=== PATIENT | female | born 1980 | race Caucasian/White ===

== ENCOUNTER 2022-09-17 12:50 | Outpatient (CLI) | payer OTHER | END 2022-09-17 12:51 | disposition EMS.NT | LOC: EMS 12:50 | DX: R10.13 Epigastric pain (principal); R11.2 Nausea with vomiting, unspecified; R19.7 Diarrhea, unspecified ==

== ENCOUNTER 2022-09-17 13:39 | Emergency (ER) | payer OTHER ==
--- OUTSIDE RECORDS SUMMARY | 2022-09-17 13:45 | EXTERNAL MEDICAL SUMMARY RPT | Continuity of Care Document ---
:1980 Author Organization [facility] Address [address] [place] [address] Phone Allergies and Intolerances date description facility type (no date) [facility] (unknown) Encounters No information. Functional Status No information. Immunizations No information. Medications date description facility [id number] Levothyroxine Sodium 0.025 MG Oral Tab let [facility] Problems No information. Procedures date description facility +0000 [facility] [id number] [facility] Results/Labs test date author facility value unit interpret ation Result panel 1 (unknown) (no (unknown) (unknown) (no value) (units (unk nown) date) unknown) (unknown) (no (unknown) (unknown) [place], [place] (units ( unknown) date) [id number] unknown) (unknown) (no (unknown) (unknown) [place] (units (unkno wn) date) unknown) (unknown) (no (unknown) (unknown) [facility] (units (unknown) date) unknown) (unknown) (no (unknown) (unknown) Nurse Office (units (u nknown) date) Visit unknown) (unknown) (no (unknown) (unknown) itching (units (unkno wn) date) unknown) (unknown) (no (unknown) (unknown) (no value) (units (unk nown) date) unknown) (unknown) (no (unknown) (unknown) COVID-19 (units (u nknown) date) unknown) (unknown) (no (unknown) (unknown) 06/20/22 (units (unkno wn) date) unknown) (unknown) (no (unknown) (unknown) [id number] (units (unkno wn) date) unknown) (unknown) (no (unknown) (unknown) Age/Sex: 42 / F (units (unknown) date) Date of Service: unknown) (unknown) (no (unknown) (unknown) Allergies (units (unkn own) date) unknown) (unknown) (no (unknown) (unknown) Attending Dr: (units ( unknown) date) Damian Cedeño MD unknown) (unknown) (no (unknown) (unknown) : 1980 (units (unknown) date) Acct:[id number] unknown) (unknown) (no (unknown) (unknown) Dept at (units (unkno wn) date) . unknown) (unknown) (no (unknown) (unknown) Documented By: (units (unknown) date) Damian Cedeño MD unknown) 06/20/22 1143 (unknown) (no (unknown) (unknown) Evaluation/Scree (units (unknown) date) chey for possible unknown) COVID-19 completed?: Yes- COVID-19 CPT (unknown) (no (unknown) (unknown) Health (units (unkno wn) date) Management unknown) (unknown) (no (unknown) (unknown) Health (units (unkno wn) date) Management unknown) reviewed with patient: No (unknown) (no (unknown) (unknown) Intake (units (unkno wn) date) unknown) (unknown) (no (unknown) (unknown) Intake Note: (units (u nknown) date) unknown) (unknown) (no (unknown) (unknown) Intake performed (units (unknown) date) by: Melania Vieyra unknown) (unknown) (no (unknown) (unknown) Intake- Clincial (units (unknown) date) Staff unknown) (unknown) (no (unknown) (unknown) Loc: [facility] (units (unkno wn) date) unknown) (unknown) (no (unknown) (unknown) Note (units (unkno wn) date) unknown) (unknown) (no (unknown) (unknown) Patient: (units (unkno wn) date) Patsy Pedroza unknown) MR#: [id number] (unknown) (no (unknown) (unknown) Pt came in for a (units (unknown) date) pre procedure unknown) covid test. Denied any covid symptoms. Explained (unknown) (no (unknown) (unknown) Reason For Visit (units (unknown) date) unknown) (unknown) (no (unknown) (unknown) Signed By: (units (unk nown) date) unknown) (unknown) (no (unknown) (unknown) Smoking Status: (units (unknown) date) Never smoker unknown) (unknown) (no (unknown) (unknown) This note may (units ( unknown) date) have been all or unknown) partially generated using voice recognition (unknown) (no (unknown) (unknown) Tobacco Status (units (unknown) date) unknown) (unknown) (no (unknown) (unknown) Visit Reasons: (units (unknown) date) [facility] unknown) (unknown) (no (unknown) (unknown) have occurred. (units (unknown) date) If there are any unknown) questions, please contact the Medical Records (unknown) (no (unknown) (unknown) latex Allergy (units ( unknown) date) (Intermediate, unknown) Verified 02/26/22 14:22) (unknown) (no (unknown) (unknown) may occur. (units (unk nown) date) Occasional unknown) wrong-word or 'sound-alike' substitutions may have (unknown) (no (unknown) (unknown) occurred due to (units (unknown) date) the inherent unknown) limitations of voice recognition software. Please (unknown) (no (unknown) (unknown) read the note (units ( unknown) date) carefully and unknown) recognize, using context, where these substitutions (unknown) (no (unknown) (unknown) software. (units (unkn own) date) Although every unknown) effort is made to edit content, cone winder errors (unknown) (no (unknown) (unknown) test to pt. (units (un known) date) Tolerated well. unknown) Result panel 2 (unknown) (no date) (unknown) (unknown) Negative (units (unkn own) unknown) Result panel 3 (unknown) (no (unknown) (unknown) (no value) (units (unk nown) date) unknown) (unknown) (no (unknown) (unknown) 06/22/22 1159 (units ( unknown) date) unknown) (unknown) (no (unknown) (unknown) [place] (units ( unknown) date) [id number] unknown) (unknown) (no (unknown) (unknown) [facility] (units (unknown) date) unknown) (unknown) (no (unknown) (unknown) Nurse Office (units (u nknown) date) Visit unknown) (unknown) (no (unknown) (unknown) Signed (units (unkno wn) date) unknown) (unknown) (no (unknown) (unknown) itching (units (unkno wn) date) unknown) (unknown) (no (unknown) (unknown) (no value) (units (unk nown) date) unknown) (unknown) (no (unknown) (unknown) COVID-19 (units (u nknown) date) unknown) (unknown) (no (unknown) (unknown) 06/20/22 (units (unkno wn) date) unknown) (unknown) (no (unknown) (unknown) [id number] (units (unkno wn) date) unknown) (unknown) (no (unknown) (unknown) Age/Sex: 42 / F (units (unknown) date) Date of Service: unknown) (unknown) (no (unknown) (unknown) Allergies (units (unkn own) date) unknown) (unknown) (no (unknown) (unknown) Attending Dr: (units ( unknown) date) Damian Cedeño MD unknown) (unknown) (no (unknown) (unknown) : 1980 (units (unknown) date) Acct:[id number] unknown) (unknown) (no (unknown) (unknown) Dept at (units (unkno wn) date) . unknown) (unknown) (no (unknown) (unknown) Documented By: (units (unknown) date) Damian Cedeño MD unknown) 06/20/22 1143 (unknown) (no (unknown) (unknown) Evaluation/Scree (units (unknown) date) chey for possible unknown) COVID-19 completed?: Yes- COVID-19 CPT (unknown) (no (unknown) (unknown) Health (units (unkno wn) date) Management unknown) (unknown) (no (unknown) (unknown) Health (units (unkno wn) date) Management unknown) reviewed with patient: No (unknown) (no (unknown) (unknown) Intake (units (unkno wn) date) unknown) (unknown) (no (unknown) (unknown) Intake Note: (units (u nknown) date) unknown) (unknown) (no (unknown) (unknown) Intake performed (units (unknown) date) by: Melania Vieyra unknown) (unknown) (no (unknown) (unknown) Intake- Clincial (units (unknown) date) Staff unknown) (unknown) (no (unknown) (unknown) Loc: [facility] (units (unkno wn) date) unknown) (unknown) (no (unknown) (unknown) Note (units (unkno wn) date) unknown) (unknown) (no (unknown) (unknown) Patient: (units (unkno wn) date) Patsy Pedroza unknown) MR#: [id number] (unknown) (no (unknown) (unknown) Pt came in for a (units (unknown) date) pre procedure unknown) covid test. Denied any covid symptoms. Explained (unknown) (no (unknown) (unknown) Reason For Visit (units (unknown) date) unknown) (unknown) (no (unknown) (unknown) Signed By: (units (unk nown) date) <Electronically unknown) signed by Damian Cedeño MD> (unknown) (no (unknown) (unknown) Smoking Status: (units (unknown) date) Never smoker unknown) (unknown) (no (unknown) (unknown) This note may (units ( unknown) date) have been all or unknown) partially generated using voice recognition (unknown) (no (unknown) (unknown) Tobacco Status (units (unknown) date) unknown) (unknown) (no (unknown) (unknown) Visit Reasons: (units (unknown) date) [facility] unknown) (unknown) (no (unknown) (unknown) have occurred. (units (unknown) date) If there are any unknown) questions, please contact the Medical Records (unknown) (no (unknown) (unknown) latex Allergy (units ( unknown) date) (Intermediate, unknown) Verified 02/26/22 14:22) (unknown) (no (unknown) (unknown) may occur. (units (unk nown) date) Occasional unknown) wrong-word or 'sound-alike' substitutions may have (unknown) (no (unknown) (unknown) occurred due to (units (unknown) date) the inherent unknown) limitations of voice recognition software. Please (unknown) (no (unknown) (unknown) read the note (units ( unknown) date) carefully and unknown) recognize, using context, where these substitutions (unknown) (no (unknown) (unknown) software. (units (unkn own) date) Although every unknown) effort is made to edit content, cone winder errors (unknown) (no (unknown) (unknown) test to pt. (units (un known) date) Tolerated well. unknown) Result panel 4 (unknown) (no date) (unknown) (unknown) (no value) (units 226 37-3 unknown) (unknown) (no date) (unknown) (unknown) (no value) (units 495 60-6 unknown) (unknown) (no date) (unknown) (unknown) (no value) (units 191 39-5 unknown) (unknown) (no date) (unknown) (unknown) (no value) (units 226 34-0 unknown) (unknown) (no date) (unknown) (unknown) (no value) (units 226 33-2 unknown) (unknown) (no date) (unknown) (unknown) (no value) (units 527 97-8 unknown) Result panel 5 (unknown) (no (unknown) (unknown) (no value) (units (unk nown) date) unknown) (unknown) (no (unknown) (unknown) (no value) (units (unk nown) date) unknown) (unknown) (no (unknown) (unknown) Date of Service: (units (unknown) date) 06/23/22 unknown) (unknown) (no (unknown) (unknown) (no value) (units (unk nown) date) unknown) (unknown) (no (unknown) (unknown) - (units (unkno wn) date) unknown) (unknown) (no (unknown) (unknown) 06/23/22 0919 (units ( unknown) date) unknown) (unknown) (no (unknown) (unknown) 06/23/22 0920 (units ( unknown) date) unknown) (unknown) (no (unknown) (unknown) Allergies (units (unkn own) date) unknown) (unknown) (no (unknown) (unknown) History + (units (unkn own) date) Physical Report unknown) (unknown) (no (unknown) (unknown) Home Medications (units (unknown) date) unknown) (unknown) (no (unknown) (unknown) [facility] (units (unknown) date) [address] unknown) [place] [address] (unknown) (no (unknown) (unknown) Pre-operative (units ( unknown) date) Note unknown) (unknown) (no (unknown) (unknown) (no value) (units (unk nown) date) unknown) (unknown) (no (unknown) (unknown) 06/23/22 (units (unkno wn) date) unknown) (unknown) (no (unknown) (unknown) Medication (units (unk nown) date) Instructions unknown) Recorded Confirmed Type (unknown) (no (unknown) (unknown) (past 8 hours): (units (unknown) date) unknown) (unknown) (no (unknown) (unknown) 08:42 (units (unkno wn) date) unknown) (unknown) (no (unknown) (unknown) [id number] (units (unkno wn) date) unknown) (unknown) (no (unknown) (unknown) 42-year-old (units (un known) date) female with unknown) altered bowel habit in the setting of a family history (unknown) (no (unknown) (unknown) ASA Class (for (units (unknown) date) procedural unknown) sedation): II (unknown) (no (unknown) (unknown) Age/Sex: 42 / F (units (unknown) date) unknown) (unknown) (no (unknown) (unknown) Allergy/AdvReac (units (unknown) date) Type Severity unknown) Reaction Status Date / Time (unknown) (no (unknown) (unknown) Appearance: (units (un known) date) grossly normal unknown) (unknown) (no (unknown) (unknown) Assessment + (units (u nknown) date) Plan unknown) (unknown) (no (unknown) (unknown) Assessment + (units (u nknown) date) Plan narrative: unknown) (unknown) (no (unknown) (unknown) 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 unknown) (unknown) (no (unknown) (unknown) Blood Pressure (units (unknown) date) 113/79 unknown) (unknown) (no (unknown) (unknown) COVID-19 (units (unkno wn) date) unknown) (unknown) (no (unknown) (unknown) COVID-19 status: (units (unknown) date) Negative unknown) (unknown) (no (unknown) (unknown) Cardio (units (unkno wn) date) unknown) (unknown) (no (unknown) (unknown) (units (unkno wn) date) delivery unknown) delivered (unknown) (no (unknown) (unknown) Changes to H+P: (units (unknown) date) No unknown) (unknown) (no (unknown) (unknown) Chest (units (unkno wn) date) unknown) (unknown) (no (unknown) (unknown) Chest: normal (units ( unknown) date) inspection of the unknown) chest (unknown) (no (unknown) (unknown) Chief complaint: (units (unknown) date) SDC unknown) (unknown) (no (unknown) (unknown) Const (units (unkno wn) date) unknown) (unknown) (no (unknown) (unknown) Criteria for (units (u nknown) date) continued unknown) procedure: Possibility delay results in more complex (unknown) (no (unknown) (unknown) Critical Care (units ( unknown) date) time: unknown) (unknown) (no (unknown) (unknown) : 1980 (units (unknown) date) Acct:[id number] unknown) (unknown) (no (unknown) (unknown) Date Patient (units (u nknown) date) Seen: 06/23/22 unknown) (unknown) (no (unknown) (unknown) Effort + (units (unkno wn) date) Inspection: unknown) normal respiratory effort (unknown) (no (unknown) (unknown) Exam (units (unkno wn) date) unknown) (unknown) (no (unknown) (unknown) Extrem (units (unkno wn) date) unknown) (unknown) (no (unknown) (unknown) Eyes (units (unkno wn) date) unknown) (unknown) (no (unknown) (unknown) Family + Social (units (unknown) date) History unknown) (unknown) (no (unknown) (unknown) GI (units (unkno wn) date) unknown) (unknown) (no (unknown) (unknown) General: (units (unkno wn) date) appearance unknown) normal, both eyes and all related structures (unknown) (no (unknown) (unknown) General: (units (unkno wn) date) cooperative unknown) (unknown) (no (unknown) (unknown) General: no (units (un known) date) rashes or lesions unknown) noted (unknown) (no (unknown) (unknown) General: normal (units (unknown) date) to inspection and unknown) no pedal edema (unknown) (no (unknown) (unknown) General: patient (units (unknown) date) alert and patient unknown) awake (unknown) (no (unknown) (unknown) HENMT (units (unkno wn) date) unknown) (unknown) (no (unknown) (unknown) Head: normal to (units (unknown) date) inspection unknown) (unknown) (no (unknown) (unknown) History + (units (unkn own) date) Physical unknown) reviewed/Exam performed by Physician: Yes (unknown) (no (unknown) (unknown) History of (units (unk nown) date) Present Illness unknown) (unknown) (no (unknown) (unknown) Home Medications (units (unknown) date) and Allergies unknown) (unknown) (no (unknown) (unknown) I reviewed my (units ( unknown) date) note from March of unknown) this year no significant changes. Patient has (unknown) (no (unknown) (unknown) I spent a total (units (unknown) date) of [] minutes of unknown) critical care time on this patient's care (unknown) (no (unknown) (unknown) Inspection: (units (un known) date) normal to unknown) inspection (unknown) (no (unknown) (unknown) Interval Note (units ( unknown) date) unknown) (unknown) (no (unknown) (unknown) Kidney stones (units ( unknown) date) unknown) (unknown) (no (unknown) (unknown) Medical History (units (unknown) date) (Reviewed unknown) 06/23/22 @ 09:18 by Moe Lazaro MD) (unknown) (no (unknown) (unknown) Meds (units (unkno wn) date) unknown) (unknown) (no (unknown) (unknown) Menorrhagia with (units (unknown) date) regular cycle unknown) (unknown) (no (unknown) (unknown) Narrative: (units (unk nown) date) unknown) (unknown) (no (unknown) (unknown) Neck (units (unkno wn) date) unknown) (unknown) (no (unknown) (unknown) Neck: normal (units (u nknown) date) visual inspection unknown) (unknown) (no (unknown) (unknown) Neuro (units (unkno wn) date) unknown) (unknown) (no (unknown) (unknown) Oxygen Delivery (units (unknown) date) Method Room Air unknown) (unknown) (no (unknown) (unknown) Oxygen Delivery (units (unknown) date) Method Room Air unknown) (unknown) (no (unknown) (unknown) PONV (units (unkno wn) date) (postoperative unknown) nausea and vomiting) (unknown) (no (unknown) (unknown) Patient History (units (unknown) date) unknown) (unknown) (no (unknown) (unknown) Patient: (units (unkno wn) date) Patsy Pedroza unknown) MR#: [id number] (unknown) (no (unknown) (unknown) Pre-operative (units ( unknown) date) Note unknown) (unknown) (no (unknown) (unknown) 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 (unknown) (no (unknown) (unknown) Provider: (units (unkn own) date) Moe Lazaro MD unknown) (unknown) (no (unknown) (unknown) Psych (units (unkno wn) date) unknown) (unknown) (no (unknown) (unknown) Pulse Oximetry (units (unknown) date) 100 unknown) (unknown) (no (unknown) (unknown) Pulse Rate 62 (units ( unknown) date) unknown) (unknown) (no (unknown) (unknown) ROS: Yes All (units (u nknown) date) systems reviewed unknown) with the patient and are negative except as (unknown) (no (unknown) (unknown) Rate: regular (units ( unknown) date) rate unknown) (unknown) (no (unknown) (unknown) Resp (units (unkno wn) date) unknown) (unknown) (no (unknown) (unknown) Respiratory Rate (units (unknown) date) 16 unknown) (unknown) (no (unknown) (unknown) Result date/Date (units (unknown) date) tested (Pos, unknown) Neg/Pending): 06/20/22 (unknown) (no (unknown) (unknown) Review of (units (unkn own) date) Systems unknown) (unknown) (no (unknown) (unknown) S/P endometrial (units (unknown) date) ablation unknown) (unknown) (no (unknown) (unknown) Signed (units (unkno wn) date) By:<Electronicall unknown) y signed by Moe Lazaro MD> (unknown) (no (unknown) (unknown) Skin (units (unkno wn) date) unknown) (unknown) (no (unknown) (unknown) Smoking Status (units (unknown) date) Never smoker unknown) (unknown) (no (unknown) (unknown) Social History: (units (unknown) date) unknown) (unknown) (no (unknown) (unknown) Substance Use (units ( unknown) date) Type does not use unknown) (unknown) (no (unknown) (unknown) Surgical History (units (unknown) date) (Reviewed unknown) 06/23/22 @ 09:18 by Moe Lazaro MD) (unknown) (no (unknown) (unknown) Temperature 98.2 (units (unknown) date) F unknown) (unknown) (no (unknown) (unknown) Time Patient (units (u nknown) date) Seen: 09:17 unknown) (unknown) (no (unknown) (unknown) Time Spent With (units (unknown) date) Patient unknown) (unknown) (no (unknown) (unknown) Tobacco + (units (unkn own) date) Substance use: unknown) (unknown) (no (unknown) (unknown) Vital Signs (units (un known) date) unknown) (unknown) (no (unknown) (unknown) alcohol intake (units (unknown) date) current unknown) (unknown) (no (unknown) (unknown) alcohol intake (units (unknown) date) frequency a few unknown) times a month (unknown) (no (unknown) (unknown) future surgery (units (unknown) date) or treatment unknown) (unknown) (no (unknown) (unknown) household (units (unkn own) date) members spouse unknown) (unknown) (no (unknown) (unknown) is planned for (units (unknown) date) today. unknown) (unknown) (no (unknown) (unknown) latex Allergy (units ( unknown) date) Intermediate unknown) itching Verified 06/23/22 08:38 (unknown) (no (unknown) (unknown) levothyroxine 25 (units (unknown) date) mcg tablet 50 mcg unknown) PO DAILY 06/23/22 06/23/22 History (unknown) (no (unknown) (unknown) multivitamin 1 (units (unknown) date) cap PO DAILY unknown) 02/06/20 04/08/22 History (unknown) (no (unknown) (unknown) not responded (units ( unknown) date) sufficiently to unknown) psyllium husk. She is using a ?green supplement (unknown) (no (unknown) (unknown) of colon polyps (units (unknown) date) and family unknown) history of inflammatory bowel disease. Colonoscopy (unknown) (no (unknown) (unknown) otherwise (units (unkn own) date) documented unknown) (unknown) (no (unknown) (unknown) quetiapine 25 mg (units (unknown) date) tablet 75 mg PO unknown) BEDTIME #150 tabs 06/11/22 06/23/22 Rx (unknown) (no (unknown) (unknown) today; this time (units (unknown) date) is exclusive of unknown) procedural time. (unknown) (no (unknown) (unknown) with probiotics? (units (unknown) date) and this is unknown) helping. Result panel 6 (unknown) (no (unknown) (unknown) Colonic mucosa (units (unknown) date) with no unknown) diagnostic abnormality. (unknown) (no (unknown) (unknown) Negative for (units (u nknown) date) active, chronic, unknown) and microscopic colitis. (unknown) (no (unknown) (unknown) Negative for (units (u nknown) date) dysplasia and unknown) malignancy. (unknown) (no (unknown) (unknown) [address] [place] [address] (units (unknown) date) [address], unknown) [place], [place] [id number] (unknown) (no (unknown) (unknown) [facility] (units (unknown) date) [facility] unknown) (unknown) (no (unknown) (unknown) MD Byrd (units (unkn own) date) Kely GONZALES Phone: unknown) [phone] (unknown) (no (unknown) (unknown) (no value) (units (unk nown) date) unknown) (unknown) (no (unknown) (unknown) [address] [place] [address] (units (unknown) date) unknown) (unknown) (no (unknown) (unknown) [place] (units ( unknown) date) [address] unknown) (unknown) (no (unknown) (unknown) [facility] (units (unknown) date) unknown) (unknown) (no (unknown) (unknown) Pathology (units (unkn own) date) Diagnostic Report unknown) (unknown) (no (unknown) (unknown) Signed (units (unkno wn) date) unknown) (unknown) (no (unknown) (unknown) (no value) (units (unk nown) date) unknown) (unknown) (no (unknown) (unknown) (units (unknown) date) unknown) (unknown) (no (unknown) (unknown) Performed at: (units (unknown) date) 01 unknown) (unknown) (no (unknown) (unknown) . 01 (units (unkno wn) date) unknown) (unknown) (no (unknown) (unknown) . (units (unkno wn) date) unknown) (unknown) (no (unknown) (unknown) /JOEY 06/23/2022 (units (unknown) date) 1931 Local unknown) (unknown) (no (unknown) (unknown) 0.1 x 0.1 x 0.1 (units (unknown) date) cm in aggregate unknown) submitted entirely in 1 cassette(s) (unknown) (no (unknown) (unknown) [id number] (units (unkno wn) date) unknown) (unknown) (no (unknown) (unknown) CPT . (units (unkno wn) date) unknown) (unknown) (no (unknown) (unknown) Diagnosis: (units (unk nown) date) unknown) (unknown) (no (unknown) (unknown) Electronically (units (unknown) date) signed: . unknown) (unknown) (no (unknown) (unknown) Gross (units (unkno wn) date) description: . unknown) (unknown) (no (unknown) (unknown) K59.00 (units (unkno wn) date) unknown) (unknown) (no (unknown) (unknown) [facility] Accession (units ( unknown) date) Number: unknown) [id number] (unknown) (no (unknown) (unknown) MRV 06/24/2022 (units (unknown) date) 1243 Local unknown) (unknown) (no (unknown) (unknown) Material (units (unkno wn) date) submitted: . unknown) (unknown) (no (unknown) (unknown) NPI- [id number] (units (unknown) date) unknown) (unknown) (no (unknown) (unknown) Pathologist (units (un known) date) provided ICD-10: unknown) (unknown) (no (unknown) (unknown) RANDOM COLON (units (u nknown) date) BIOPSIES: unknown) (unknown) (no (unknown) (unknown) Random Colon (units (u nknown) date) Biopsies: unknown) (unknown) (no (unknown) (unknown) Received in (units (un known) date) formalin are 2 unknown) fragment(s) of de león, soft tissue measuring (unknown) (no (unknown) (unknown) Cortney Ray (units (unkno wn) date) MD Farrah, unknown) Pathologist (unknown) (no (unknown) (unknown) Specimen (units (unkno wn) date) Comment: A unknown) courtesy copy of this report has been sent to [phone] (unknown) (no (unknown) (unknown) colon - RANDOM (units (unknown) date) COLON BIOPSIES unknown) (unknown) (no (unknown) (unknown) Collection Date: (units (unknown) date) 06/23/22 unknown) (unknown) (no (unknown) (unknown) DD/ (units (unknown) date) 0000 unknown) (unknown) (no (unknown) (unknown) Date of : (units (unknown) date) 1980 Admit unknown) Date: 06/23/22 (unknown) (no (unknown) (unknown) Dictated By: (units (u nknown) date) Cortney Yan MD unknown) (unknown) (no (unknown) (unknown) (units (unknown) date) Dictating Dr: unknown) Cortney Yan MD (unknown) (no (unknown) (unknown) Ordering (units (unkno wn) date) Physician: unknown) Moe Lazaro MD (unknown) (no (unknown) (unknown) Patient name: (units ( unknown) date) Patsy Pedroza unknown) (unknown) (no (unknown) (unknown) Signed By: (units (unk nown) date) 06/24/222006 unknown) (unknown) (no (unknown) (unknown) TD/TT: 06/24/22 (units (unknown) date) 2006 unknown) Result panel 7 (unknown) (no (unknown) (unknown) (no value) (units (unk nown) date) unknown) (unknown) (no (unknown) (unknown) Date of Service: (units (unknown) date) 06/23/22 unknown) (unknown) (no (unknown) (unknown) 06/23/22 1024 (units ( unknown) date) unknown) (unknown) (no (unknown) (unknown) Colonoscopy Note (units (unknown) date) unknown) (unknown) (no (unknown) (unknown) [facility] (units (unknown) date) [address] unknown) [place] [address] (unknown) (no (unknown) (unknown) (no value) (units (unk nown) date) unknown) (unknown) (no (unknown) (unknown) 1. Continue (units (un known) date) current unknown) supplementation with probiotic 2. Repeat colonoscopy 10 (unknown) (no (unknown) (unknown) [id number] (units (unkno wn) date) unknown) (unknown) (no (unknown) (unknown) Adult colonoscope (units (unknown) date) unknown) (unknown) (no (unknown) (unknown) After the risks (units (unknown) date) and benefits were unknown) explained, written and verbal informed consent (unknown) (no (unknown) (unknown) Age/Sex: 42 / F (units (unknown) date) unknown) (unknown) (no (unknown) (unknown) Altered bowel (units ( unknown) date) habits unknown) constipation and diarrhea the history of colon polyps (unknown) (no (unknown) (unknown) Bowel prep (units (unk nown) date) adequate unknown) (unknown) (no (unknown) (unknown) Colonoscopy with (units (unknown) date) biopsies. unknown) (unknown) (no (unknown) (unknown) Complications: (units (unknown) date) none unknown) (unknown) (no (unknown) (unknown) Comprehensive (units ( unknown) date) imaging was unknown) accomplished throughout the rectum including the (unknown) (no (unknown) (unknown) : 1980 (units (unknown) date) Acct:[id number] unknown) (unknown) (no (unknown) (unknown) Date of (units (unkno wn) date) procedure: unknown) 06/23/22 (unknown) (no (unknown) (unknown) Disposition: PACU (units (unknown) date) unknown) (unknown) (no (unknown) (unknown) Endoscopic (units (unk nown) date) diagnosis unknown) (unknown) (no (unknown) (unknown) Impression: (units (un known) date) unknown) (unknown) (no (unknown) (unknown) Indications: (units (u nknown) date) unknown) (unknown) (no (unknown) (unknown) Operative (units (unkn own) date) Date/Time/Diagnose unknown) s (unknown) (no (unknown) (unknown) Patient: (units (unkno wn) date) Patsy Pedroza unknown) MR#: [id number] (unknown) (no (unknown) (unknown) Plan for (units (unkno wn) date) aftercare: unknown) (unknown) (no (unknown) (unknown) Post-op (units (unkno wn) date) diagnosis: same unknown) (unknown) (no (unknown) (unknown) Post-procedure (units (unknown) date) unknown) (unknown) (no (unknown) (unknown) Pre-op diagnosis: (units (unknown) date) Altered bowel unknown) habits constipation and diarrhea the history of (unknown) (no (unknown) (unknown) Procedure + (units (un known) date) Clinicians unknown) (unknown) (no (unknown) (unknown) Procedure Notes (units (unknown) date) unknown) (unknown) (no (unknown) (unknown) Procedure in (units (u nknown) date) detail: unknown) (unknown) (no (unknown) (unknown) Provider: (units (unkn own) date) Moe Lazaro MD unknown) (unknown) (no (unknown) (unknown) SCOAP/Timeout: (units (unknown) date) Done unknown) (unknown) (no (unknown) (unknown) Same procedure as (units (unknown) date) scheduled: Yes unknown) (unknown) (no (unknown) (unknown) Scope withdrawal (units (unknown) date) time: 8 minutes unknown) (unknown) (no (unknown) (unknown) Sedation minutes: (units (unknown) date) 15 unknown) (unknown) (no (unknown) (unknown) Signed (units (unkno wn) date) By:<Electronically unknown) signed by Moe Lazaro MD> (unknown) (no (unknown) (unknown) Study performed: (units (unknown) date) unknown) (unknown) (no (unknown) (unknown) Surgeon: Moe (units (unknown) date) Tejas unknown) (unknown) (no (unknown) (unknown) There was no (units (un known) date) evidence of any unknown) proctitis. No colitis throughout. Random biopsies (unknown) (no (unknown) (unknown) Time of (units (unkno wn) date) procedure: 10:22 unknown) (unknown) (no (unknown) (unknown) Visually normal (units (unknown) date) colonoscopy and unknown) terminal ileoscopy (unknown) (no (unknown) (unknown) appreciated (units (un known) date) throughout. unknown) (unknown) (no (unknown) (unknown) as identified by (units (unknown) date) the appendiceal unknown) orifice and ileocecal valve. The scope was (unknown) (no (unknown) (unknown) colon polyps (units (u nknown) date) family history of unknown) inflammatory bowel disease (unknown) (no (unknown) (unknown) dentate line. The (units (unknown) date) colon was unknown) decompressed, the scope was then removed from the (unknown) (no (unknown) (unknown) family history of (units (unknown) date) inflammatory bowel unknown) disease (unknown) (no (unknown) (unknown) interrogated and (units (unknown) date) appeared visually unknown) normal. No polyps or mass lesions were (unknown) (no (unknown) (unknown) introduced into (units (unknown) date) the patient and unknown) advanced under direct visualization to the cecum (unknown) (no (unknown) (unknown) patient who (units (un known) date) tolerated the unknown) procedure well. (unknown) (no (unknown) (unknown) sedation details. (units (unknown) date) Digital rectal unknown) examination was accomplished. The scope was (unknown) (no (unknown) (unknown) slowly withdrawn (units (unknown) date) to carefully unknown) examine the mucosa for any defects or lesions. (unknown) (no (unknown) (unknown) the left lateral (units (unknown) date) decubitus unknown) position. Please see nurse boat tender notes for (unknown) (no (unknown) (unknown) was obtained. The (units (unknown) date) patient was unknown) brought into the procedure room and placed into (unknown) (no (unknown) (unknown) were acquired for (units (unknown) date) exclusion of unknown) microscopic disease. The terminal ileum was (unknown) (no (unknown) (unknown) years time 3. (units ( unknown) date) Await unknown) histopathology Social History date description facility (no date) Never smoked tobacco (finding) [facility] Vital Signs date measurement value units +0000 BMI BMI 31.1 kg/m2 [id number]+0000 BP_diastolic BP_diastolic 73 mm[H g] [id number]+0000 BP_systolic BP_systolic 111 mm[Hg] [id number]+0000 heart_rate heart_rate 65 /min [id number]+0000 height_metric height_metric 157.48 cm [id number]+0000 height_standard height_standard 62 in [id number]+0000 respiration_rate respiration_rate 18 /min [id number]+0000 temperature_metric temperature_metric 36.06 C [id number]+0000 temperature_standard temperature_standard 9 6.9 F [id number]+0000 weight_metric weight_metric 34.98 kg [id number]+0000 weight_standard weight_standard 77.11 lb
[2022-09-17 13:58] LABS: BASOPHILS % (AUTO) 0.2 %; EOSINOPHILS # (AUTO) 0.1 10^3/uL (0.0-0.7); EOSINOPHILS % (AUTO) 0.8 %; HCT - HEMATOCRIT 41.2 % (37.0-47.0); HGB - HEMOGLOBIN 14.1 g/dL (12.0-16.0); LYMPHOCYTES # (AUTO) 1.2 10^3/uL (1.5-3.5); LYMPHOCYTES % (AUTO) 18.2 %; MEAN CORPUSCULAR HEMOGLOBIN 29.9 pg (27.0-31.0); MEAN CORPUSCULAR HGB CONC 34.2 g/dL (32.0-36.0); MEAN CORPUSCULAR VOLUME 87.5 fL (81.0-99.0); MEAN PLATELET VOLUME 10.6 fL (7.9-10.8); MONOCYTES # (AUTO) 0.4 10^3/uL (0.0-1.0); MONOCYTES % (AUTO) 6.6 %; NEUTROPHILS # (AUTO) 4.8 10^3/uL (1.5-6.6); PLT - PLATELET COUNT 269 10^3/uL (130-450); RED BLOOD COUNT 4.71 10^6/uL (4.20-5.40); RED CELL DISTRIBUTION WIDTH 12.6 % (12.0-15.0); WHITE BLOOD COUNT 6.5 x10^3/uL (4.8-10.8)
--- NOTE | 2022-09-17 13:59 | ED Physician Documentation ---
PD HPI ABD PAIN - Stated complaint Stated Complaint: ABD PX - Chief complaint Chief Complaint: Abd Pain - History obtained from History obtained from: Patient - History of Present Illness Timing - onset: How many days ago (2) Timing - duration: Days (2) Timing - details: Abrupt onset (Onset initially of crampy diffuse abdominal pain with nausea some episodes of vomiting and several episodes of diarrhea. That improved but now with last night and today severe mid to upper abdominal pain with eating or upright position. Feels intense cramping and stabbing together.) Quality: Cramping, Aching, Pain Location: Epigastric, Periumbilical Radiation: Lower back Improved by: BM (Less cramping after diarrheal movement). No: Eating, Vomiting Worsened by: Eating Associated symptoms: Nausea, Vomiting (yesterday few times, none today), Diarrhea (yesterday, last movement overnight about 1 am.), Loss of appetite. No: Fever, Near syncope / syncope Similar symptoms before: No diagnosis (She states she has had intermittent episodes with similar pain nausea and loose stool lasting for a day or so over the last few months, with 3 separate episodes. No evaluation. Current episode is worse.) Recently seen: Not recently seen Review of Systems Constitutional: reports: Myalgias. denies: Fever, Chills Nose: denies: Rhinorrhea / runny nose, Congestion Throat: denies: Sore throat Cardiac: denies: Chest pain / pressure Respiratory: denies: Cough GI: reports: Abdominal Pain, Nausea, Vomiting, Diarrhea. denies: Hematemesis, Bloody / black stool : denies: Dysuria Neurologic: denies: Generalized weakness, Focal weakness, Near syncope, Altered mental status, Headache PD PAST MEDICAL HISTORY - Past Medical History Cardiovascular: None Respiratory: None Endocrine/Autoimmune: None GI: None - Present Medications Home Medications: Ambulatory Orders Medication Instructions Recorded Confirmed Dicyclomine [Bentyl] 10 mg PO QID PRN #20 cap 09/17/22 Lidocaine Viscous 2% [Xylocaine 5 ml PO Q4H PRN #100 ml 09/17/22 Viscous 2%] Ondansetron Odt [Zofran] 4 mg TL Q6H PRN #10 tablet 09/17/22 Pantoprazole [Protonix] 40 mg PO DAILY 30 Days #30 tablet 09/17/22 Potassium Citrate [Potassium 10 meq PO DAILY 09/17/22 09/17/22 Citrate ER] QUEtiapine [SEROquel] 75 mg PO QPM 09/17/22 09/17/22 Sertraline [Zoloft] 50 mg PO DAILY 09/17/22 09/17/22 - Allergies Allergies/Adverse Reactions: Allergies Allergy/AdvReac Type Severity Reaction Status Date / Time latex Allergy Hives Verified 09/17/22 14:53 PD ED PE NORMAL - Vitals Vital signs reviewed: Yes - General General: Alert and oriented X 3, No acute distress, Well developed/nourished - Neck Neck: Supple, no meningeal sign, No adenopathy - Cardiac Cardiac: RRR, No murmur - Respiratory Respiratory: Clear bilaterally - Abdomen Abdomen: Normal bowel sounds, Soft, Non distended, No organomegaly, Other (Tender in the periumbilical and epigastric area. Not particularly tender in the right upper quadrant. No percussion or rebound tenderness. Mild guarding central abdomen.) - Female Female : Deferred - Rectal Rectal: Deferred - Back Back: No CVA TTP - Derm Derm: Normal color, Warm and dry - Neuro Neuro: Alert and oriented X 3, No motor deficit, Normal speech Results - Vitals Vitals: Vital Signs - 24 hr 09/17/22 09/17/22 09/17/22 13:45 16:31 17:31 Temperature 37.1 C Heart Rate 63 66 73 Respiratory 15 15 19 Rate Blood Pressure 128/87 H 119/80 113/81 H O2 Saturation 100 100 99 Oxygen O2 Source Room air - Labs Labs: Laboratory Tests 09/17/22 09/17/22 09/17/22 13:53 13:53 13:58 WBC 6.5 RBC 4.71 Hgb 14.1 Hct 41.2 MCV 87.5 MCH 29.9 MCHC 34.2 RDW 12.6 Plt Count 269 MPV 10.6 Neut # (Auto) 4.8 Lymph # (Auto) 1.2 L [place] # (Auto) 0.4 Eos # (Auto) 0.1 Baso # (Auto) 0.0 Absolute Nucleated RBC 0.00 Nucleated RBC % 0.0 Sodium 137 Potassium 3.7 Chloride 108 Carbon Dioxide 23 Anion Gap 6.0 BUN 10 Creatinine 0.7 Estimated GFR (MDRD) 92 Glucose 112 H Calcium 8.9 Total Bilirubin 0.5 AST 24 ALT 25 Alkaline Phosphatase 47 Total Protein 7.3 Albumin 4.2 Globulin 3.1 Albumin/Globulin Ratio 1.4 Lipase 64 H Urine Color YELLOW Urine Clarity CLEAR Urine pH 7.5 Ur Specific [place] 1.010 Urine Protein NEGATIVE Urine Glucose (UA) NEGATIVE Urine Ketones NEGATIVE Urine Occult Blood NEGATIVE Urine Nitrite NEGATIVE Urine Bilirubin NEGATIVE Urine Urobilinogen 0.2 (NORMAL) Ur Leukocyte Esterase NEGATIVE Ur Microscopic Review NOT INDICATED Urine Culture Comments NOT INDICATED Urine HCG, Qual NEGATIVE - Rads (name of study) abd/pelvic CT Radiology: Final report received (no acute findings in abd/pelvis. Nonobstructing stone left kidney. ), See rad report PD MEDICAL DECISION MAKING - ED course Complexity details: reviewed results (Normal basic labs with minimal elevation of lipase. Tenderness in the mid abdomen so CT scan obtained.), considered differential (Current episode could be viral or food related with abrupt onset and now cramping. However she has had brief similar episodes in the recent past so consider diverticular or gallbladder.), d/w patient Departure - Departure Disposition: 01 Home, Self Care Clinical Impression: Acute gastroenteritis Gastritis Qualifiers: Gastritis type: unspecified gastritis Chronicity: unspecified Gastritis bleeding: without bleeding Qualified Code(s): K29.70 - Gastritis, unspecified, without bleeding Condition: Stable Record reviewed to determine appropriate education?: Yes Instructions: ED PUD Vs Gastritis Prescriptions: Dicyclomine [Bentyl] 10 mg PO QID PRN #20 cap PRN Reason: Abdominal Pain Pantoprazole [Protonix] 40 mg PO DAILY 30 Days #30 tablet Lidocaine Viscous 2% [Xylocaine Viscous 2%] 5 ml PO Q4H PRN #100 ml PRN Reason: Pain Ondansetron Odt [Zofran] 4 mg TL Q6H PRN #10 tablet PRN Reason: Nausea / Vomiting Comments: Your symptoms do sound likely to be some element of reflux with esophageal irritation and intermittent spasms. No signs of gallstones or gallbladder wall thickening nor pancreas inflammation. Your current symptoms with the nausea vomiting and diarrhea also sound likely to be perhaps a viral gastroenteritis acutely and I would anticipate that aspect to improve in a day or 2. I would treat the symptoms he been having otherwise with acid reducing medicine of pantoprazole daily for the next month or 2. Also use antacid such as Maalox or Mylanta if needed. For upper abdominal or esophageal pain, you can add in lidocaine viscus to the antacids periodically if needed for discomfort. You can use dicyclomine which is an antispasmodic to help with the cramps or stomach/intestinal cramps spasms. Ondansetron if needed for nausea. [place] food for the next few days. Avoid irritants such as caffeine alcohol or spicy foods. Follow-up with your primary care and also gastroenterology regarding further evaluation and potential idea of upper endoscopy. Recheck if not improved well over the next few days and return if worse. I transmitted your prescriptions to [facility] pharmacy. Discharge Date/Time: 09/17/22 17:32
[2022-09-17 14:08] LABS: BILIRUBIN,URINE NEGATIVE (NEGATIVE); GLUCOSE, URINE (UA) NEGATIVE (NEGATIVE); KETONES,URINE (UA) NEGATIVE (NEGATIVE); LEUKOCYTE ESTERASE, URINE NEGATIVE (NEGATIVE); NITRITE,URINE NEGATIVE (NEGATIVE); OCCULT BLOOD,URINE NEGATIVE (NEGATIVE); PH,URINE 7.5 PH (5.0-7.5); PROTEIN,URINE NEGATIVE (NEGATIVE); UROBILINOGEN,URINE 0.2 (NORMAL) E.U./dL (NORMAL)
[2022-09-17 14:11] LABS: ALBUMIN 4.2 g/dL (3.2-5.5); ALBUMIN/GLOBULIN RATIO 1.4 (1.0-2.2); BILIRUBIN,TOTAL 0.5 mg/dL (0.2-1.0); CALCIUM 8.9 mg/dL (8.5-10.3); CREATININE 0.7 mg/dL (0.4-1.0); POTASSIUM 3.7 mmol/L (3.5-5.0); TOTAL PROTEIN 7.3 g/dL (6.7-8.2)
[2022-09-17 14:11] LABS: CLARITY,URINE CLEAR (CLEAR); HCG UR QUAL NEGATIVE
[2022-09-17] MEDS ORDERED: KETOROLAC 15 MG/ML VIAL IVP STA (14:37)
[2022-09-17] MEDS ORDERED: MAG HYDROX/AL HYDROX/SIMETH 30 ML UDC PO STA (14:37)
[2022-09-17] MEDS ORDERED: FAMOTIDINE 20 MG/2 ML VIAL IVP STA (14:37)
[2022-09-17] MEDS ORDERED: ONDANSETRON 4 MG/2 ML VIAL IVP STA (14:37)
[2022-09-17] MEDS ORDERED: HYDROmorphone 0.5 MG/0.5 ML SYRINGE IVP STA (14:38)
[2022-09-17] MEDS ORDERED: iohexoL-300 100 ML VIAL ONE (15:05)
[2022-09-17] MEDS ORDERED: iohexoL-300 100 ML VIAL IVP ONE (15:35)
--- NOTE | 2022-09-17 15:50 | CT Report ---
PROCEDURE: CT abdomen pelvis with contrast INDICATIONS: mid abd pain, nausea, diarrhea CONTRAST: 100ml Omnipaque 300 TECHNIQUE: After the administration of contrast, 5 mm thick sections acquired from the diaphragms to the sym physis. 5 mm thick coronal and sagittal reformats were acquired. For radiation dose reduction, the following was used: automated exposure control, adjustment of mA and/or kV according to patient size . COMPARISON: None. FINDINGS: Image quality: Excellent. ABDOMEN: Lung bases: Lung bases are clear. Heart size is normal. Solid organs: Liver and spleen are normal in size and enhancement. Gallbladder unremarkable Biliar y system is non dilated. Pancreas enhances normally. No adrenal nodules. Kidneys demonstrate jose l size and enhancement, without hydronephrosis. Nonobstructing left renal calculi measure up to 3 mm . 1.2 cm left renal simple cyst noted as well. Peritoneum and bowel: Bowel loops demonstrate normal wall thickness and caliber. No free fluid or a ir. Nodes and vessels: No retroperitoneal or mesenteric adenopathy by size criteria. Aorta and inferior vena cava are normal in size. Miscellaneous: No ventral hernias. PELVIS: Genitourinary: Bladder wall thickness is normal. Miscellaneous: No inguinal hernias or adenopathy. Bones: No suspicious bony lesions. No vertebral body compression fractures. IMPRESSION: 1. No acute CT findings in the abdomen and pelvis. 2. Nonobstructive left renal calculi and simple left renal cyst Reviewed by: Kendell Frias MD on 09/17/2022 2:49 PM AKDT Approved by: Kendell Frias MD on 09/17/2022 2:49 PM AKDT Station ID: [id number]
[2022-09-17 17:33] VITALS: BP 113/81
== END 2022-09-17 17:32 | disposition home or self-care (01) ==
LOC: EDUNIT# → ED 13:39
DX: K52.9 Noninfective gastroenteritis and colitis, unspecified (principal); K29.70 Gastritis, unspecified, without bleeding
CPT/HCPCS: 36415; 74177; 80053; 81003; 81025; 83690; 85025; 96374; 99284; 99285; A9270; J1170; Q9967; 81001; 87086

== ENCOUNTER 2024-01-08 08:00 | Outpatient (CLI) | payer OTHER | END 2024-01-08 23:59 | disposition home or self-care (01) | LOC: LAB.N 08:00 | PROVIDERS: ATTEND Family Medicine | DX: R30.0 Dysuria (principal) | CPT/HCPCS: 87086; 87181 ==

== ENCOUNTER 2024-03-23 13:30 | Outpatient (CLI) | payer OTHER ==
[2024-03-23 20:29] LABS: CHLAMYDIA TRACHOMATIS DNA NEGATIVE (NEGATIVE); NEISSERIA GONORRHOEAE DNA NEGATIVE (NEGATIVE); TRICHOMONAS VAGINALIS DNA NEGATIVE (NEGATIVE)
== END 2024-03-23 13:45 | disposition home or self-care (01) ==
LOC: LAB.N 13:30
PROVIDERS: ATTEND Physician Assistant Medical
DX: Z11.3 Encounter for screening for infections with a predominantly sexual mode of transmission (principal); N39.0 Urinary tract infection, site not specified
CPT/HCPCS: 36415; 86592; 86695; 86696; 86803; 87086; 87389; 87491; 87591; 87661